=== PATIENT | male | born 1955 | race Caucasian/White ===

== ENCOUNTER 2025-03-15 06:27 | Observation (INO) | payer OTHER ==
[2025-03-10 11:15] LABS: MEAN PLATELET VOLUME 7.4 FL (7.4-10.4); PRE OP HEMATOCRIT 46.4 % (42.0-52.0); PRE OP HEMOGLOBIN 15.8 g/dL (14.0-17.9); PRE OP PLATELET COUNT 153 X10'3 (140-440); PRE OP WHITE BLOOD COUNT 8.8 10'3 (4.8-10.8); RED CELL DISTRIBUTION WIDTH 14.9 % (11.5-14.5)
[2025-03-10 11:31] LABS: CREATININE 1.01 MG/DL (0.60-1.10); PRE OP ALT 21 U/L (30-65); PRE OP ANION GAP 5 (8-16); PRE OP AST 19 U/L (10-37); PRE OP BILIRUB, TOTAL 0.6 MG/DL (0.0-1.0); PRE OP GLUCOSE 87 MG/DL (70-104); PRE OP POTASSIUM 3.8 MMOL/L (3.4-5.1); PRE OP SODIUM 142 MMOL/L (135-145); TOTAL CARBON DIOXIDE 29.6 MMOL/L (24-32); eGFR 73 ML/MIN
[~2025-03-15] VITALS: Ht 165.1 cm; Wt 104.7 kg
[2025-03-15] VITALS (30 sets, daily range): BP systolic 97–164; BP diastolic 57–103; PULSE 52–69; RESP 12–32; TEMP 97.3–98.2; O2SAT 93–100
[2025-03-15] MEDS: ceFAZolin 2gm/dext,iso 50mL 50 ML IV ONE (05:30)
[2025-03-15] MEDS: DOCUMENT DATE & TIME OF BETA-BLOCKER PO ONE (05:30)
[~2025-03-15 06:27] MED LIST: ATOR20TA66 PO; CHOL200074 PO; CYAN-116 PO; HYDR25TA90 PO; LISI40TA20 PO; LOP25T PO; RIVA20TA PO
[2025-03-15] MEDS ORDERED: mineral oil 10ml sterile, topical TP ONE (06:52)
[2025-03-15] MEDS ORDERED: ROPIVAcaine 0.5% (5mg/ml) 30ml vial ONE ×2 (06:52→10:45)
[2025-03-15] MEDS ORDERED: bisacodyl 10mg suppository rectal RC PRN (07:05)
[2025-03-15] MEDS ORDERED: magnesium hydroxide 30ml (MOM) UD suspension PO PRN (07:05)
[2025-03-15] MEDS ORDERED: ondansetron/PF 4mg/2ml inj IV PRN ×2 (07:05→08:20)
[2025-03-15] MEDS ORDERED: PCA WASTE DOCUMENTATION 1 MG ML MC SCH (07:05)
[2025-03-15] MEDS: ringers solution, lacted 1,000 ML IV SCH ×2 (07:08→12:08)
[2025-03-15] MEDS: VANCOMYCIN/H2O 1.5g/300mL PB 300 ML IV ONE (07:10)
[2025-03-15] MEDS ORDERED: HYDROmorphone/PF 0.2 MG/ML SYRINGE IV PRN ×2 (08:20)
[2025-03-15] MEDS ORDERED: labetalol 20mg/4ml (5mg/ml) syringe IV PRN (08:20)
[2025-03-15] MEDS ORDERED: hydrALAZINE 20mg/ml inj. IV PRN (08:20)
[2025-03-15] MEDS ORDERED: fentaNYL/PF 50MCG/1 ML 2ML syringe ONE (08:25)
[2025-03-15] MEDS ORDERED: MIDAZolam 1mg/ml 10ml vial ONE (08:25)
[2025-03-15] MEDS ORDERED: oxyCODONE IR 5mg (immed. release) tablet PO PRN (10:00)
[2025-03-15] MEDS ORDERED: propofol inj 20 ML IV ONE (10:45)
--- NOTE | 2025-03-15 11:22 | OPERATIVE REPORT ---
Operative Report Operative Report OPERATIVE REPORT [facility] [address] [place] [address] Date of service: March 15, 2025 PREOPERATIVE DIAGNOSIS [id number] Unilateral primary osteoarthritis, left knee [id number] Varus deformity, not elsewhere classified, left knee POSTOPERATIVE DIAGNOSIS [id number] Unilateral primary osteoarthritis, left knee [id number] Varus deformity, not elsewhere classified, left knee Operation Performed [id number] Total Knee Arthroplasty [place]: [place] 91180 Computer Assisted Navigation Musculoskeletal - Imageless 23495 Remote therapeutic monitoring; device supply with scheduled recordings every 30 days. Procedure: Computer-assisted, robotically-assisted, left total knee arthroplasty. Surgeon: Dr. Colton Hines Chute Tender: Lucrecia Mortensen PA-C Anesthesiologist: Dr. Betancourt Anesthesia: Spinal anesthetic and a regional blocks Indications: 70-year-old male who has chronic osteoarthritis of the left knee with severe pain and limitation of activities despite extensive non-operative management. This patient has had extensive conservative treatment of knee joint arthritis, including rest, external joint support, anti-inflammatory medications, physical therapy, and corticosteroid injection. Physical therapy has been provided, along with a home exercise program prior to making the decision to proceed with surgical treatment. This therapeutic intervention did not provide any substantial relief of symptoms or improvement in function. The patient has been utilizing a cane, set of crutches, or walker, for more than 3 months prior to deciding to proceed with surgery. These interventions have not provided sufficient relief of pain to allow improvement in function. The patient has utilized non-steroidal anti-inflammatory medications for relief of pain over an extended period of time (more than 2 months), and has not experienced sufficient improvement in symptoms. Despite these treatments, this patient has continued difficulties with pain and limited function. They are unable to walk long distances, do vigorous activities, sit or sleep comfortably. Total knee replacement is the next reasonable step in terms of treatment. Indications for cleaner assistant surgeon: A second set of skilled hands with specific orthopedic knowledge of the surgical procedure and orthopedic surgical techniques was necessary to accomplish this operation successfully, and with the least amount of morbidity for the patient. This facilitated operative exposure, manipulation and handling of tissues, placement of any implants, and accomplishment of wound closure. Findings: There was indeed a very severely arthritic knee, with loss of cartilage, exposed bone, and marginal osteophytes. The medial compartment was particularly bad. A 9 degree varus deformity and 8 degree flexion contracture were measured preoperatively. Post operative alignment was 0 varus, and to degrees flexion. Complications: None Estimated Blood Loss: 200 cc Implants: A Sienna Persona CR total knee system was utilized with a size nine left cemented femoral component, and a size F left cemented tibial smart stem. A 10 mm medial congruent left tibial insert was utilized. The [employer] robotically assisted total knee arthroplasty system and computer was utilized. Procedure: The risks, benefits, expected results, and possible complications of the planned procedure had been explained to the patient and informed consent obtained. The patient was taken to the operating room and underwent a spinal anesthetic. The patient was placed in the supine position on the operating table, and the left leg was prepped and draped in the usual fashion. A timeout was taken prior to surgery, confirming patient identification, operative side operative site, planned procedure, administration of pre-operative antibiotics, site marking, and presence of all necessary implants and instruments, x-rays and equipment. A standard anterior, slightly medial approach was performed with a medial parapatellar arthrotomy, and a VMO split. Time was then spent removing excessive synovial tissue and exposing the medial and lateral gutters, as well as moving the anterior sections of the residual menisci. The patella was mobilized to be able to be retracted laterally. This gave exposure of the anterior aspect of the knee. Attention was then directed to the patella. The patella was in excellent condition so we decided not to resurface the patella. Infrared arrays were then placed on the femur and the tibia. Utilizing the [employer] computer system, the hip, knee, and ankle were landmarked in usual fashion. The initial alignment measurements were then taken confirming the above listed deformity. Surgical planning was then carried out on the computer, confirming alignment of components, sizing, and gap balancing. Appropriate soft tissue releases were performed. The robot was then utilized to make the distal femoral cut. The femur was prepared in 4 degrees of flexion and neutral coronal alignment. The distal femoral 4 in 1 block was placed with the robot, and the remaining femoral cuts also performed. A repeat cut of the femur was performed, after validation, to gain perfect alignment. The robot was then utilized to cut the proximal tibia in 5 degrees of flexion and neutral coronal alignment. A repeat cut of the tibia was necessary to gain perfect alignment after validation. The computer was then utilized to check longitudinal alignment and soft tissue balance, and this confirmed excellent alignment. Next the dynamic balancing block was utilized to check and adjust soft tissue balancing. The trial implant was sized and properly rotated, and the peg drilling performed. Final check of alignment and balancing was then carried out with trials in place, as well as final removal and cleaning up of soft tissue such as meniscal remnants and osteophytes. A tourniquet was inflated to 300 mmHg after exsanguination of the leg with an Esmarch. Cement was then mixed; 2 batches were utilized, mixed together, for the tibia, the femur and the patella. The cut surface of the tibia was thoroughly lavaged with the pulsating lavage and then dried. The tibia was impacted with the mallet, seating it quite nicely in its proper rotational alignment. Excess cement was removed from around the margins. The femoral cuts were cleaned with a pulsating lavage and then dried with the lap sponges, and the femur was impacted into position with a mallet. Excess cement was removed around the margins of the components as the cement cured. Pressure was held on the femoral component and tibia by placing a spacer and bringing the leg to full extension and applying axial and hyperextension force. Upon complete hardening of all cement, the knee was inspected and excess cement removed. We lavaged the knee to wash out any debris and checked to make sure we had no impinging cement. The trial spacer was replaced and overall alignment checked with computer, ensuring we had full extension of the knee, and appropriate medial and lateral soft tissue balance, as well as flexion and exte nsion balance. The tourniquet was deflated and hemostasis obtained with electrocautery. Tourniquet time was 11 minutes. The wound was irrigated thoroughly one more time and then dried with lap sponges. The final tibial spacer was impacted and locked into the locking mechanism without difficulty. I lavaged the knee to wash out any debris. The tibial trial spacer was replaced and overall alignment checked with computer, ensuring we had full extension of the knee, and appropriate medial and lateral soft tissue balance, as well as flexion and extension balance. The wound was irrigated thoroughly one more time and then dried with lap sponges. The final tibial spacer was impacted and locked into the locking mechanism without difficulty. The retinacular incision was closed with #2 Quill suture, and subcutaneous tissue closed with #2-0 Vicryl suture. Skin was closed with 4-0 Monocryl suture. A sterile dressing was applied, and the patient was returned to the recovery room in satisfactory condition. In the recovery area the remote monitoring station was dispensed to the patient and family. Instructions were given for its usage and supply and distribution manager once the patient got home. We also confirmed the patient had installed the my mobility software, and we ensured that the patient was enrolled in appropriate software platform from our end. Remote monitoring was initiated at the preoperative appointment and the devices used for remote monitoring implanted and dispensed today. Electronically Signed by: Colton Hines MD Doctor, Orthopedic Surgery Signed on: 03/15/2025 11:21 AM COLTON HINES MD Mar 15, 2025 11:22
[2025-03-15] MEDS: acetaminophen 1,000mg/100ml IV 100 ML IV PRN (12:07)
[2025-03-15] MEDS: morphine 4 MG/ML inj SYRINge IV PRN (12:30)
[2025-03-15] MEDS: potassium cl 20mEq in 1/2 NS 1,000 ML IV SCH (12:40)
[2025-03-15] MEDS: oxyCODONE IR 5mg (immed. release) tablet PO PRN (14:04)
[2025-03-15] MEDS: ceFAZolin/D5W- 1GM premix 50 ML IV SCH (17:17)
[2025-03-15] MEDS: vancomycin/NS 1 GM ADD-VANTAGE 250 ML IV SCH (21:09)
[2025-03-15] MEDS: HYDROmorphone/PF 0.2 MG/ML SYRINGE IV PRN (21:10)
[2025-03-16 02:22] VITALS: BP 159/69; PULSE 68; RESP 18; TEMP 97.8; O2SAT 96
[2025-03-16 06:00] VITALS: BP 161/74; PULSE 60; RESP 19; TEMP 98.2; O2SAT 94
[2025-03-16 06:11] LABS: MEAN PLATELET VOLUME 7.7 FL (7.4-10.4); RED CELL DISTRIBUTION WIDTH 14.0 % (11.5-14.5)
[2025-03-16 06:39] LABS: TOTAL CARBON DIOXIDE 24.2 MMOL/L (24-32)
--- NOTE | 2025-03-16 07:23 | DISCHARGE SUMMARY ---
Discharge Summary Ortho [facility] ~ Discharge Summary *Problems/Diagnosis: (1) S/P total knee arthroplasty Status: Acute Admission Diagnosis: Osteoarthritis Discharge Diagnosis\Comment: see above Operations\Procedures see above Consultants: none Complications: none Condition on DC: Stable Discharge Summary: Patient was admitted on date of surgery. He is currently postop day 1 following a left total knee arthroplasty. His overnight stay was uneventful. Incision site clean dry and intact. He has worked with physical therapy and been cleared. He is safe to discharge home. Total Time Spent on D/C: Up to 30 Minutes Medications Home Meds: Home Medications Active Reported Vitamin B12 (Cyanocobalamin (Vitamin B-12)) 1,000 Mcg Tablet 1 Tab PO DAILY Vitamin D3 (Cholecalciferol (Vitamin D3)) 50 Mcg (2000 Unit) Capsule 1 Cap PO DAILY 30 Days Xarelto (Rivaroxaban) 20 Mg Tablet 1 Tab PO DAILY with food Apresoline* (Hydralazine HCl) 25 Mg Tablet 2 Tab PO Q12H Lopressor tablet* (Metoprolol Tartrate) 25 Mg Tablet 50 Mg PO BID Hold for SBP below 100mm Hg Hold for Heart Rate below 60. Lisinopril* (Lisinopril) 40 Mg Tablet 1 Tab PO DAILY LIPITOR tablet (Atorvastatin Calcium) 20 Mg Tablet 40 Mg PO DAILY Supervising Physician Supervising Physician: Dr. Colton Hines Problem Qualifiers (1) S/P total knee arthroplasty: Qualified Codes: Z96.652 - Presence of left artificial knee joint CIPRIANO DELATORRE Mar 16, 2025 07:23
[2025-03-16] MEDS: cyanocobalamin 500mcg tablet PO SCH (08:12)
[2025-03-16] MEDS: cholecalciferol (vitamin D3) 1,000 unit (25mcg) tablet PO SCH (08:13)
[2025-03-16 10:00] VITALS: BP 160/69; PULSE 82; RESP 18; TEMP 97.8; O2SAT 95
== END 2025-03-16 13:12 | disposition home health service (06) ==
LOC: PAS 06:27 → EDSTATUS 08:45 → ORTHO 4S 15:12
PROVIDERS: ADMIT Physician Assistant; ATTEND Orthopaedic Surgery
DX: M17.12 Unilateral primary osteoarthritis, left knee (principal); M25.562 Pain in left knee; M21.162 Varus deformity, not elsewhere classified, left knee; I10 Essential (primary) hypertension; I25.2 Old myocardial infarction; E78.5 Hyperlipidemia, unspecified; Z79.899 Other long term (current) drug therapy; Z98.890 Other specified postprocedural states
CPT/HCPCS: 20985; 27447; 36415; 80051; 80053; 82948; 85025; 87081; 96365; 96366; 96367; 96375; 96376; 97110; 97161; 97530; 97535; C1713; C1776; G0378; J0131; J0690; J1171; J2250; J2270; J2704; J2795; J3010; J3373; J3375; J3480; J7120; A4215; A6253; A6449; A7000

== ENCOUNTER 2025-03-16 21:25 | Emergency (ER) | payer OTHER, MEDICARE ==
[~2025-03-16] VITALS: Ht 165.1 cm; Wt 104.7 kg
--- NOTE | 2025-03-16 22:40 | Physician Documentation ---
History of Present Illness ~ Chief Complaint: See Chief Complaint Stated Complaint: POST OP COMPLICATIONS Time Seen by MD: 22:30 HPI Patient presents to the emergency room for evaluation of bleeding status post left knee replacement. He is on Xarelto. Bleeding began after physical therapy today. No lightheadedness or weakness. Medication Reconciliation Allergies: Coded Allergies: Penicillins (Verified Adverse Reaction, Unknown, diarrhea, 03/16/25) Scheduled Atorvastatin Calcium (LIPITOR tablet), 40 MG PO DAILY, (Reported) Cholecalciferol (Vitamin D3) (Vitamin D3), 1 CAP PO DAILY, (Reported) Cyanocobalamin (Vitamin B-12) (Vitamin B12), 1 TAB PO DAILY, (Reported) Hydralazine Hcl* (Apresoline*), 2 TAB PO Q12H, (Reported) Lisinopril* (Lisinopril*), 1 TAB PO DAILY, (Reported) Metoprolol Tartrate* (Lopressor tablet*), 50 MG PO BID, (Reported) Rivaroxaban (Xarelto), 1 TAB PO DAILY, (Reported) Discontinued Medications [Vit B12], (Reported) Discontinued Reason: Prescription changed [Vit D3], Unknown Dose, (Reported) Discontinued Reason: Prescription changed Past Medical History Patient History: FH: alcohol abuse FH: breast cancer Review of Systems ROS All review of systems negative except as per HPI Physical Exam Vital Signs: Temperature: 98.1, Source: Oral, Heart Rate: 62, Respiratory Rate: 17, BP: 149/69, Pulse Oximetry: 95, Weight: 104.700 Physical Exam General: Patient is awake, alert, oriented x4 in no acute distress and well appearing.~ Head: Normocephalic and atraumatic. Eyes: Conjunctival normal. EOMI. PERRL. ENT: Mucous membranes moist. Neck: Supple, trachea is midline. Chest: Clear to auscultation bilaterally without rales, rhonchi, or wheezes. There is no accessory muscle use or retractions. Cardiac: RRR without murmurs, gallops, or rubs. Extremities: Island dressing over patient's surgical wound site soaked through with blood. No active bleeding Progress Results/Orders Results/Orders Vital Signs 03/16/25 03/16/25 03/16/25 21:38 22:29 22:50 Temp 98.1 98.1 Pulse 70 62 Resp 18 17 14 B/P (MAP) 153/59 149/69 (95) Pulse Ox 94 95 Medical Decision Making Additional information obtaine: N/A Findings Patient presents to the emergency room with some bleeding from his surgical site. No active bleeding in the emergency room. Patient's wound read bandage. The need to call his doctor in the morning discussed. ER precautions regarding copious amounts of bleeding discussed. Stable vital signs and he had not feel emergent labs are necessary. General Diff Dx:Considerations: Include: Abrasion, Contusion, Fracture, Hematoma, Laceration, Malunion, Neurovascular injury, Open fracture, Sprain, Ulcer, Other Knee Diff Dx:Considerations: Include: Abrasion, Arthritis, Contusion, DJD, Fracture-femur, Fracture-fibula, Fracture-patella, Fracture-tibia, Gout, Hematoma, Laceration, Meniscus injury, Neurovascular injury, Open fracture, Rheumatoid arthritis, Septic, Sprain, Sprain-MCL, Sprain-LCL, Sprain-ACL, Sprain-PCL, Other Ankle Diff Dx:Considerations: Include: Abrasion, Arthritis, Contusion, DJD, Fracture-metatarsal, Fracture-fibula, Fracture-tarsal, Fracture-tibia, Gout, Hematoma, Laceration, Malunion, Neurovascular injury, Nonunion, Open fracture, Osteomyelitis, Rheumatoid arthritis, Sprain, Septic, Ulcer, Other Foot Diff Dx:Considerations: Include: Abrasion, Arthritis, Cellulitis, Contusion, Dislocation, DJD, Fracture-metatarsal, Fracture-phalynx, Fracture- tarsal, Gout, Hematoma, Ingrown toenail, Laceration, Malunion, Neurovascular injury, Open fracture, Paronychia, Puncture, Rheumatoid, Sprain, Septic, Subungual hematoma, Ulcer, Other Toe Diff Dx:Considerations: Include: Abrasion, Cellulitis, Contusion, Dislocation, Felon, Fracture, Hematoma, Laceration, Neurovascular injury, Open fracture, Paronychia, Subungual hematoma, Other Departure Disposition: 01 HOME / SELF CARE / HOMELESS Impression: Primary Impression: S/P total knee arthroplasty Additional Impression: Post-op bleeding Condition: Stable Discharge Instructions: Bleeding Precautions When on Anticoagulant Therapy, Adult Additional Instructions: Call your surgeon tomorrow to give update. Referrals: NO PRIMARY CARE PROVIDER (PCP) Signature Scribe Signature: No scribe Attestation: The note accurately reflects work and decisions made by me.Olu Hernandez MD 03/16/25 23:20 OLU HERNANDEZ MD Mar 16, 2025 22:40
[2025-03-16 23:47] VITALS: BP 154/79; PULSE 67; RESP 17; TEMP 98.1; O2SAT 95
== END 2025-03-16 23:49 | disposition home or self-care (01) ==
LOC: ER 21:26
DX: Z96.652 Presence of left artificial knee joint (principal); Z88.0 Allergy status to penicillin; Z79.01 Long term (current) use of anticoagulants
CPT/HCPCS: 99282; A6446; A6449